=== PATIENT | female | born 1970 | race Caucasian/White ===

== ENCOUNTER → 2016-05-13 14:59 | Outpatient (CLI) | payer BC ==
[2014-10-04 08:32] VITALS: BMI 35.9
[~2016-05-13 14:59] MED LIST: ADVIL200 MG; HYDROCODONE-APA1 TAB PO; MOBIC7.5 MG PO; NORCO 10/325 TA1 TA1 PO; PROZAC20 MG PO; ROBAXIN500 MG PO; SOMA350 MG PO; SPRINTEC1 TAB PO; ULTRAM50 MG PO; ZOFRAN4 MG PO
== END | disposition home or self-care (01) ==
LOC: D.CT 14:59
DX: R10.9 Unspecified abdominal pain (principal)

== ENCOUNTER → 2016-07-20 17:12 | Outpatient (CLI) | payer BC ==
[2014-10-04 08:32] VITALS: BMI 35.9
== END | disposition home or self-care (01) ==
LOC: D.MAMMO 11:00
DX: R92.8 Other abnormal and inconclusive findings on diagnostic imaging of breast (principal)

== ENCOUNTER → 2017-02-08 19:28 | Outpatient (CLI) | payer BC ==
[2014-10-04 08:32] VITALS: BMI 35.9
== END | disposition home or self-care (01) ==
LOC: D.SLEEP 19:28
DX: G47.33 Obstructive sleep apnea (adult) (pediatric) (principal); G47.10 Hypersomnia, unspecified

== ENCOUNTER 2019-03-01 10:53 | Day surgery (SDC) | payer OTHER ==
[~2019-03-01] VITALS: Ht 154.9 cm; Wt 86.2 kg
--- NOTE | ~2019-03-01 | OP ---
PATIENT NAME: ELISSA ROSADO MEDICAL RECORD: [id number] :66 LOCATION:[facility] ADMISSION DATE: SURGEON: FARIDA PERES DATE OF OPERATION: 03/01/2019 SURGEON: Farida Peres DPM PREOPERATIVE DIAGNOSIS: Hallux abductovalgus, left foot. POSTOPERATIVE DIAGNOSIS: Hallux abductovalgus, left foot. PROCEDURE: Mateus osteotomy, left great toe with ostectomy first metatarsal head, all left foot. ANESTHESIA: Local with monitored anesthesia care. HEMOSTASIS: Pneumatic ankle tourniquet inflated to 250 mmHg. ESTIMATED BLOOD LOSS: Minimal. MATERIALS: 3-0 Vicryl, 4-0 nylon, one Pictela Quick Staple. INJECTABLES: 10 mL of 0.5% bupivacaine plain. The patient has longstanding history of pain associated with a bunion deformity. She has tried wider shoes to no avail. She is here today for surgical correction of this chronically painful condition. The patient was detailed regarding the risks and benefits of the procedure, complications were discussed. All questions were answered. She was appropriately consented for the above-mentioned procedure. The patient was brought in the operating room and placed on the operating table in supine position. A timeout was called with Dr. Peres, who identified the patient, the surgical site, and the surgeries to be performed. Once appropriate anesthesia was obtained, the foot was prepped and draped in the usual aseptic manner. The pneumatic ankle tourniquet was inflated to 250 mmHg on the well-padded left ankle. Attention was directed to the first metatarsophalangeal joint area where a 5-cm linear incision was made just over the joint. This incision was carried deep to soft tissue with care being taken to retract all vital neurovascular structures. All bleeders were cauterized along the way. The periosteum was then reflected from the head of first metatarsal and the base of the proximal phalanx, thus revealing the first metatarsophalangeal joint. Next, utilizing a sagittal saw, the hypertrophied medial eminence of the first metatarsal was resected. All sharp bone edges were then smoothed with a rasp. Attention was then directed to the base of the proximal phalanx where a V-shaped osteotomy with the apex oriented laterally was created. The wedge of bone was removed and the osteotomy was reduced. Utilizing casing man's recommended technique, one 9-mm Quick Staple was placed across the osteotomy. The surgical site was irrigated with copious amounts of normal sterile saline via bulb syringe. Attention was then directed to the first intermetatarsal space where the conjoined tendon of the OPERATIVE REPORT [id number] ASHLEEELISSA STAUFFERN abductor hallucis tendon and the fibular sesamoidal ligament were both identified and sharply transected. The surgical site was irrigated with copious amounts of normal sterile saline via bulb syringe. The periosteum was reapproximated and coapted using 3-0 Vicryl. The subQ was reapproximated and coapted with 4-0 Vicryl. The skin was reapproximated and coapted with 4-0 nylon. A dressing consisting of Adaptic, 4 x 4, Kerlix, and Ethan bandage applied to the left foot. The pneumatic ankle tourniquet was deflated and cap refill time is immediate to all digits of the left foot. The patient tolerated the procedure and anesthesia well. She left the operating with vital signs stable and capillary refill time intact. The patient was discharged home with instructions to ice and elevate the left foot. She was dispensed a boot to further help offload the area. There were no complications with this procedure and she will follow up with me next week. TRANSINT:[id number] Voice Confirmation ID: [id number] DOCUMENT ID: [id number] FARIDA PERES CC: [id number] DICTATION DATE: 03/02/19 1544 TIN POT OPERATOR: 03/02/192127 [facility] 03/01/19 [place] [id number] [place] [id number]
[~2019-03-01 10:53] MED LIST changes: +BYSTOLIC2.5 MG PO; +CYCLOBENZAPRINE5 MG PO; +NEURONTIN 300300 MG PO; +PRISTIQ100 MG PO; +VERAPAMIL HCL360 MG PO; +XANAX0.25 MG PO
[2019-03-01 12:15] LABS: HEMATOCRIT 42.4 % (36.0-48.0); HEMOGLOBIN 14.3 g/dL (12-16); MCH 32.9 pg (26.0-34.0); MCHC 33.7 g/dL (31.0-37.0); MCV 97.7 fL (80.0-100.0); MEAN PLATELET VOLUME 9.6 fL (7.4-10.4); RBC 4.34 10x6/uL (4.00-5.40); WBC 9.1 10x3/uL (4.8-10.8)
[2019-03-01 12:19] VITALS: BP 118/74; Ht 154.9 cm; Wt 86.2 kg
[2019-03-01 12:34] LABS: HCG URINE NEGATIVE (NEGATIVE)
== END 2019-03-01 15:45 | disposition home or self-care (01) ==
LOC: D.OPS 10:53 → D.PAN 13:30 → D.OPS 15:45
PROVIDERS: Anesthesiology; ATTEND Podiatrist
DX: M20.12 Hallux valgus (acquired), left foot (principal); M79.672 Pain in left foot

== ENCOUNTER 2020-06-18 14:15 | Outpatient (CLI) | payer BC ==
[2019-03-01 12:19] VITALS: BMI 35.9
== END 2020-06-18 23:59 | disposition home or self-care (01) ==
LOC: D.MAMMO 14:15
PROVIDERS: ATTEND Nurse Practitioner
DX: Z12.31 Encounter for screening mammogram for malignant neoplasm of breast (principal)